=== PATIENT | male | born 1975 | race Caucasian/White ===

== ENCOUNTER 2017-10-31 11:42 | Emergency (ER) | payer OTHER ==
[~2017-10-31] VITALS: Ht 190.5 cm; Wt 113.5 kg
[~2017-10-31 11:42] MED LIST: ALBU1AER INH; IBUP800T23 PO; LISI20 PO; MEDR4PAK3 PO; ZITH250T PO
[2017-10-31 11:43] VITALS: BP 157/90; PULSE 88; RESP 18; TEMP 98.7
--- NOTE | 2017-10-31 13:15 | RADRPT ---
EXAM DATE/TIME: 10/31/2017 13:02 [place] COMPARISON: No previous studies available for comparison. INDICATIONS : Right elbow inflammation MEDICAL HISTORY : None. SURGICAL HISTORY : None. ENCOUNTER: Initial ACUITY: 1 day PAIN SCORE: 7/10 LOCATION: Right elbow FINDINGS: Two view examination of the right elbow demonstrates no joint effusion, fracture or dislocation. Bon y mineralization is normal. CONCLUSION: Unremarkable limited examination of the right elbow except for mild soft tissue swelling overlying th e olecranon. Destin Mariscal MD on October 31, 2017 at 13:12 Board Certified Radiologist. This report was verified electronically.
[2017-10-31] MEDS ORDERED: BACT800T5 PO (13:42)
[2017-10-31] MEDS ORDERED: CLIN150C14 PO (13:42)
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
== END 2017-10-31 14:00 | disposition home or self-care (01) ==
LOC: NEPD 11:42
DX: L03.113 Cellulitis of right upper limb (principal); M19.90 Unspecified osteoarthritis, unspecified site; J45.909 Unspecified asthma, uncomplicated; F41.9 Anxiety disorder, unspecified; F32.9 Major depressive disorder, single episode, unspecified; K21.9 Gastro-esophageal reflux disease without esophagitis; R56.9 Unspecified convulsions; F17.200 Nicotine dependence, unspecified, uncomplicated; Z86.19 Personal history of other infectious and parasitic diseases
CPT/HCPCS: 73070; 99284